=== PATIENT | male | born 1955 | race Caucasian/White ===

== ENCOUNTER 2023-03-21 13:34 | Emergency (ER) | payer OTHER ==
[~2023-03-21] VITALS: Ht 182.9 cm; Wt 111.0 kg
[2023-03-21 13:39] VITALS: BP 157/78
[2023-03-21 13:46] VITALS: BP 155/75
[2023-03-21] MEDS ORDERED: AMLODIPINE BESY10 MG PO (13:51)
[2023-03-21] MEDS ORDERED: CRESTOR20 MG PO (13:52)
[2023-03-21] MEDS ORDERED: LEVOTHYROXIN75 MCG PO (13:52)
[2023-03-21] MEDS ORDERED: CARVEDILOL3.125 MG PO (13:53)
[2023-03-21] MEDS ORDERED: OLMESARTAN MEDOX5 MG PO (14:01)
[2023-03-21 14:16] VITALS: BP 160/82
[2023-03-21] MEDS ORDERED: METHOCARBAMOL500 MG PO (15:59)
[2023-03-21 16:06] VITALS: BP 160/82
== END 2023-03-21 16:16 | disposition home or self-care (01) | DRG 552 ==
LOC: ED 13:34
DX: M54.2 Cervicalgia (principal); I10 Essential (primary) hypertension; E78.5 Hyperlipidemia, unspecified; E03.9 Hypothyroidism, unspecified; V59.40XA Driver of pick-up truck or van injured in collision with unspecified motor vehicles in traffic accident, initial encounter; Z95.5 Presence of coronary angioplasty implant and graft